=== PATIENT | male | born 1950 | race Caucasian/White ===

== ENCOUNTER → 2023-10-07 | Outpatient (CLI) | payer MEDICARE, OTHER ==
[~2023-10-07] MED LIST: AFRIN 15 ML15 ML NS; ALPHAGAN P 15 M15 ML OU; ASPIRIN E.C. 8181 MG PO; ATARAX50 MG PO; BUSPAR10 MG PO; COMPLETE MULTI1 TAB PO; CONCERTA27 MG PO; ELIQUIS 5MG PO; FLOMAX 0.40.4 MG/CAP PO; Iohexol 300 - 100 ML VIAL IV ONE; LAMICTAL 100MG100 MG PO; LEXAPRO 10MG10 MG PO; LIPITOR 80MG80 MG PO; LOPRESSOR 225 MG/TAB PO; MELATIN 3 MG-11 TAB PO; MIRALAX238G PO; MOTRIN 600600 MG/TAB PO; NATURAL MAGNES200 MG PO; NS 100 ML IV SCH; OMEGA-3 FISH1000 MG PO; PACERONE200 MG PO; PLAVIX 75MG TAB75 MG PO; PROTONIX 40MG T40 MG PO; REVIA 50MG TABL50 MG PO; RITALIN 20M20 MG/TAB PO; SENOKOT S 50 MG1 TAB PO; TENEX PO; TYLENOL 325MG325 MG PO; ZESTRIL 10MG10 MG PO
== END ==
LOC: COL.RAD 09:44
DX: R10.9 Unspecified abdominal pain (principal)
CPT/HCPCS: Q9967